=== PATIENT | female | born 1955 | race Caucasian/White ===

== ENCOUNTER 2018-07-23 14:38 | Inpatient (IN) | payer BC, SELFPAY ==
[2018-07-23 15:01] LABS: #Basophils 0.1 thou/uL (0.0-0.2); #Lymphocytes 2.2 thou/uL (1.20-3.40); #Neutrophils 6.8 thou/uL (1.40-6.50); %Basophils 0.9 % (0.0-1.0); %Eosinophils 9.3 % (0.0-10.0); %Lymphocytes 19.6 % (21.0-51.0); %Monocytes 8.8 % (0.0-10.0); %Neutrophils 61.5 % (42.0-75.0); Hemoglobin 13.8 g/dL (12.0-16.0); Mean Corpuscular HGB CONC 33.1 g/dL (32.0-36.0); Mean Corpuscular Hemoglobin 31.4 pg (27.0-31.0); Mean Corpuscular Volume 94.7 fL (78.0-98.0); Mean Platelet Volume 9.5 fL (7.4-10.4); Platelet Count 197 thou/uL (130-400); RBC Distribution Width 12.6 % (11.5-14.5); Red Blood Cell (RBC) Count 4.39 mill/uL (4.20-5.40); White Blood Cell (WBC) Count 11.1 thou/uL (4.8-10.8)
--- NOTE | 2018-07-23 15:16 | RAD ---
CHEST ONE VIEW: INDICATIONS: Dyspnea. COMPARISON: 09/22/2009 FINDINGS: The lungs are clear. The cardiomediastinal silhouette is within normal limits. No acute osseous abn ormality is evident. IMPRESSION: No acute cardiopulmonary abnormality. POS: IRENAH
[2018-07-23] MEDS ORDERED: methylPREDNISolone Sod Succ/PF 125 MG/2 ML VIAL ONE (15:22)
[2018-07-23 15:40] LABS: ALT (SGPT) 34 U/L (8-55); AST (SGOT) 19 U/L (5-34); Albumin 4.1 g/dL (3.4-4.8); Alkaline Phosphatase 81 U/L (40-150); Anion Gap 12 mmol/L (10-20); BUN (Urea Nitrogen) 25 mg/dL (9.8-20.1); Bilirubin, Total 0.3 mg/dL (0.2-1.2); Calc. Creatinine Clearance 0 mL/min (70-130); Calcium 9.9 mg/dL (7.8-10.44); Carbon Dioxide 23 mmol/L (23-31); Chloride 108 mmol/L (98-107); Estimated GFR-MDRD 41; Globulin 3.2 g/dL (2.4-3.5); Glucose 113 mg/dL (80-115); Potassium 4.5 mmol/L (3.5-5.1); Protein, Total 7.3 g/dL (6.0-8.3); Sodium 138 mmol/L (136-145)
[2018-07-23 15:43] LABS: CKMB 4.5 ng/mL (0-6.6); Troponin I Less than 0.010 ng/mL (< 0.028)
[2018-07-23] MEDS ORDERED: Albuterol Sulfate 2.5 mg/0.5 ml Neb ONE ×3 (15:59→18:51)
[2018-07-23] MEDS ORDERED: hydrALAZINE 20 MG/ML VIAL ONE (18:09)
[2018-07-23] MEDS ORDERED: Bisacodyl 10 MG SUPP PR PRN (21:27)
[2018-07-23] MEDS ORDERED: Acetaminophen 325 MG TAB PO PRN (21:27)
[2018-07-23] MEDS ORDERED: Senokot S 8.6-50 MG TAB PO PRN (21:27)
[2018-07-23] MEDS ORDERED: Ondansetron PF 4 MG/2 ML Vial IVP PRN (21:27)
[2018-07-23] MEDS ORDERED: Ondansetron ODT 4 MG TAB PO PRN (21:27)
[2018-07-23] MEDS ORDERED: methylPREDNISolone Sod Succ/PF 125 MG/2 ML VIAL IVP SCH (22:00)
[2018-07-24] MEDS: Montelukast Sodium 10 mg Tablet PO SCH ×2 (02:47→21:33)
[2018-07-24 03:59] VITALS: BMI 41.8
[2018-07-24 06:34] LABS: Anion Gap 15 mmol/L (10-20); BUN (Urea Nitrogen) 31 mg/dL (9.8-20.1); Calc. Creatinine Clearance 57 mL/min (70-130); Calcium 9.8 mg/dL (7.8-10.44); Carbon Dioxide 19 mmol/L (23-31); Chloride 105 mmol/L (98-107); Estimated GFR-MDRD 32; Glucose 221 mg/dL (80-115); Magnesium 2.1 mg/dL (1.6-2.6); Potassium 4.6 mmol/L (3.5-5.1); Sodium 134 mmol/L (136-145)
[2018-07-24] MEDS: Mometasone/Formoterol 120 PUFF INHALER INH SCH ×2 (06:57→18:56)
--- NOTE | 2018-07-24 07:51 | HP ---
PRIMARY CARE PHYSICIAN: Dr. Venessa Summers. CHIEF COMPLAINT: Shortness of breath and wheezing of 2 days' duration. HISTORY OF PRESENT ILLNESS: The patient is a 63-year-old female with COPD, presented to the emergency room with above complaints. Over the last 2 to 3 days, the patient developed gradual worsening shortness of breath along with chest tightness and wheezing. She also had cough that was productive of scanty amount of phlegm. She denies any fever or chills. She was unable to do routine activities because of exertional shortness of breath. She tried using albuterol nebulizer treatment without much relief. She then presented to the emergency room. In the emergency room, her initial vital signs showed temperature of 98.4, respirations of 22, pulse rate of 110 with a blood pressure of 217/94 with O2 saturation of 93% on room air. She received nebulizer treatments in the emergency room along with Solu-Medrol and 10 mg IV hydralazine. Chest x-ray was negative for infiltrate. PAST MEDICAL HISTORY: 1. COPD. 2. Hyperlipidemia. 3. Hypertension. PAST SURGICAL HISTORY: 1. Cholecystectomy. 2. Hysterectomy. 3. Right foot surgery. ALLERGIES: THE PATIENT IS ALLERGIC TO PENICILLIN. CURRENT HOME MEDICATIONS: 1. Amlodipine 5 mg daily. 2. Singulair 10 mg daily. 3. Albuterol nebulizer treatment as needed. 4. Symbicort daily. SOCIAL HISTORY: The patient currently lives at home. She quit smoking last month. She denies alcohol or drug use. FAMILY HISTORY: Negative for premature coronary artery disease. REVIEW OF SYSTEMS: The patient denies any nausea, vomiting, diarrhea, or focal neurologic deficit. All other review of systems was reviewed and were found negative. PHYSICAL EXAMINATION: VITAL SIGNS: As discussed above. GENERAL: A 63-year-old female, in mild respiratory distress, able to complete short phrases. HEENT: Head, atraumatic and normocephalic. Sclerae anicteric. Moist mucous membranes. No oral lesion. NECK: Supple. No JVD. No carotid bruit. LUNGS: Showed diffuse expiratory wheezing with accessory muscle use. There were scattered rhonchi as well as some bibasilar rales. HEART: S1 and S2 present. Tachycardic. No rubs or gallops. ABDOMEN: Soft and nontender. Bowel sounds present. EXTREMITIES: No edema or calf tenderness. NEUROLOGIC: Grossly nonfocal. Moves all 4 extremities. PSYCHIATRIC: Alert, awake, and oriented x3. SKIN: Warm and dry. LYMPH NODES: No palpable lymph nodes in the neck. PERIPHERAL VASCULAR: Radial pulses palpable bilaterally. MUSCULOSKELETAL: No joint swelling or tenderness. LABORATORY DATA: Lab findings, troponin negative. BNP 43. Creatinine 1.3 with BUN 25, sodium 138, and potassium 4.5. WBC 11.1 with hemoglobin 13.8, and platelet count 197. Influenza testing negative. Chest x-ray by my review was negative for infiltrate. EKG by my review showed sinus tachycardia without significant ST-T wave changes. IMPRESSION: 1. Chronic obstructive pulmonary disease exacerbation. 2. Hypertension. 3. Hyperlipidemia. 4. Chronic kidney disease stage 3 versus acute kidney injury. 5. Former smoker. PLAN: The patient will be monitored on the medical floor. We will continue Solu-Medrol with nebulizer treatment every 4 hourly. We will also add Levaquin. We will repeat labs in a.m. Plan of care was discussed with patient in detail. She stated understanding. Job ID: [id number]
[2018-07-24] MEDS: Enoxaparin Sodium 40 MG/0.4 ML SYRINGE SC SCH (08:59)
[2018-07-24] MEDS: Amlodipine 5 MG TAB PO SCH (09:00)
[2018-07-24] MEDS: Famotidine 20 MG TAB PO SCH ×2 (09:01→21:33)
[2018-07-24] MEDS: Sodium Chloride 0.9% 1,000 ML IV SCH (09:07)
--- NOTE | 2018-07-24 10:42 | PDOC.PN ---
- Subjective Encounter Start Date: 07/24/18 Encounter Start Time: 10:40 Subjective: sob improved - Objective Resuscitation Status - Order Detail: 07/23/18 21:27 Resuscitation Status Routine Resuscitation Status: FULL: Full Resuscitation MAR Reviewed: Yes Vital Signs & Weight: Vital Signs (12 hours) Temp Pulse Resp BP Pulse Ox 07/24/18 09:00 107 H 07/24/18 08:00 98.0 F 107 H 24 H 133/60 95 07/24/18 07:45 95 07/24/18 06:56 112 H 22 H 94 L 07/24/18 04:30 98.2 F 102 H 28 H 130/68 93 L 07/24/18 02:36 116 H 22 H 95 07/24/18 02:00 98.2 F 114 H 28 H 178/79 H 95 07/23/18 23:17 94 L 07/23/18 23:16 113 H 18 94 L Weight Weight 221 lb 3.2 oz I&O: 07/23/18 07/24/18 07/25/18 06:59 06:59 06:59 Intake Total 960 Output Total 600 Balance 360 Result Diagrams: 07/23/18 14:53 07/24/18 06:09 Phys Exam - Physical Examination Neck: no JVD diffuse exp wheezes Cardiovascular: RRR, no significant murmur Gastrointestinal: soft, positive bowel sounds Musculoskeletal: edema present Dx/Plan (1) COPD exacerbation Code(s): J44.1 - CHRONIC OBSTRUCTIVE PULMONARY DISEASE W (ACUTE) EXACERBATION Status: Acute (2) HTN (hypertension) Code(s): I10 - ESSENTIAL (PRIMARY) HYPERTENSION Status: Acute Qualifiers: Hypertension type: essential hypertension Qualified Code(s): I10 - Essential (primary) hypertension (3) Dyslipidemia Code(s): E78.5 - HYPERLIPIDEMIA, UNSPECIFIED Status: Chronic (4) Acute renal failure Status: Acute Qualifiers: Acute renal failure type: unspecified Qualified Code(s): N17.9 - Acute kidney failure, unspecified - Plan cont nebs, steroids-iv, antibx -: rpt BMP in am * .
[2018-07-25] MEDS: Sodium Chloride 0.9% 1,000 ML IV SCH (00:03)
[2018-07-25] MEDS: Mometasone/Formoterol 120 PUFF INHALER INH SCH ×2 (06:14→18:09)
[2018-07-25 07:29] LABS: Anion Gap 13 mmol/L (10-20); BUN (Urea Nitrogen) 30 mg/dL (9.8-20.1); Calc. Creatinine Clearance 60 mL/min (70-130); Calcium 9.4 mg/dL (7.8-10.44); Carbon Dioxide 20 mmol/L (23-31); Chloride 109 mmol/L (98-107); Estimated GFR-MDRD 34; Glucose 249 mg/dL (80-115); Potassium 4.8 mmol/L (3.5-5.1); Sodium 137 mmol/L (136-145)
[2018-07-25] MEDS: Famotidine 20 MG TAB PO SCH ×2 (09:40→22:28)
[2018-07-25] MEDS: Enoxaparin Sodium 40 MG/0.4 ML SYRINGE SC SCH (09:40)
[2018-07-25] MEDS: Amlodipine 5 MG TAB PO SCH (09:41)
--- NOTE | 2018-07-25 11:26 | PDOC.PN ---
- Subjective Encounter Start Date: 07/25/18 Encounter Start Time: 11:25 Subjective: much less sob, some BEST - Objective Resuscitation Status - Order Detail: 07/23/18 21:27 Resuscitation Status Routine Resuscitation Status: FULL: Full Resuscitation MAR Reviewed: Yes Vital Signs & Weight: Vital Signs (12 hours) Temp Pulse Resp BP Pulse Ox 07/25/18 09:41 95 07/25/18 09:24 95 18 93 L 07/25/18 08:00 97.8 F 99 24 H 168/80 H 94 L 07/25/18 06:14 99 20 93 L 07/25/18 06:12 99 20 93 L 07/25/18 04:40 20 07/25/18 02:46 94 20 92 L 07/25/18 00:05 20 Weight Weight 221 lb 3.2 oz I&O: 07/24/18 07/25/18 07/26/18 06:59 06:59 06:59 Intake Total 960 Output Total 600 Balance 360 Result Diagrams: 07/23/18 14:53 07/25/18 06:53 Phys Exam - Physical Examination Neck: no JVD prolonged exr phase Cardiovascular: RRR, no significant murmur Gastrointestinal: soft, positive bowel sounds Musculoskeletal: no edema Dx/Plan (1) COPD exacerbation Code(s): J44.1 - CHRONIC OBSTRUCTIVE PULMONARY DISEASE W (ACUTE) EXACERBATION Status: Acute (2) HTN (hypertension) Code(s): I10 - ESSENTIAL (PRIMARY) HYPERTENSION Status: Acute Qualifiers: Hypertension type: essential hypertension Qualified Code(s): I10 - Essential (primary) hypertension (3) Dyslipidemia Code(s): E78.5 - HYPERLIPIDEMIA, UNSPECIFIED Status: Chronic (4) Acute renal failure Status: Acute Qualifiers: Acute renal failure type: unspecified Qualified Code(s): N17.9 - Acute kidney failure, unspecified - Plan steady improvement -: reduce nebs to q6h -: change steroids to prednisone 40 mg po daily * .
[2018-07-25] MEDS: Montelukast Sodium 10 mg Tablet PO SCH (22:27)
[2018-07-26 06:17] LABS: Anion Gap 12 mmol/L (10-20); BUN (Urea Nitrogen) 31 mg/dL (9.8-20.1); Calc. Creatinine Clearance 62 mL/min (70-130); Calcium 9.7 mg/dL (7.8-10.44); Carbon Dioxide 23 mmol/L (23-31); Chloride 108 mmol/L (98-107); Estimated GFR-MDRD 36; Glucose 127 mg/dL (80-115); Potassium 4.5 mmol/L (3.5-5.1); Sodium 138 mmol/L (136-145)
[2018-07-26] MEDS: Mometasone/Formoterol 120 PUFF INHALER INH SCH (07:53)
[2018-07-26 08:00] VITALS: BP 178/77; TEMP 97.6
[2018-07-26] MEDS ORDERED: predniSONE 20 MG TAB PO SCH (08:00)
[2018-07-26] MEDS: Amlodipine 5 MG TAB PO SCH (08:49)
[2018-07-26] MEDS: Famotidine 20 MG TAB PO SCH (08:49)
[2018-07-26] MEDS: Enoxaparin Sodium 40 MG/0.4 ML SYRINGE SC SCH (08:51)
--- NOTE | 2018-07-26 11:29 | DIS ---
DATE OF ADMISSION: 07/23/2018 DATE OF DISCHARGE: 07/26/2018 TRANSFER OF CARE PRIMARY CARE PROVIDER: Venessa Summers MD DISPOSITION: Discharged home. FINAL DIAGNOSES: Acute exacerbation of chronic obstructive pulmonary disease, chronic kidney disease stage 3, hypertension, and tobacco abuse. DISCHARGE MEDICATIONS: New: 1. Dulera 200/5 two puffs b.i.d. 2. Levaquin 500 mg p.o. daily x5 days. 3. Medrol Dosepak. Home medicines: 1. DuoNeb 3 mL q.i.d. 2. Amlodipine 5 mg a day. 3. Singulair 10 mg a day. ALLERGIES: TO PENICILLINS. DIET: Heart healthy. PENDING AT THE TIME OF DISCHARGE: Nothing. CODE STATUS: Full. HOSPITAL COURSE: The patient with a history of COPD, presented with acute exacerbation to [facility] Emergency Room. The patient was started on IV steroids, antibiotics, and nebulizers. She improved steadily during her hospital stay. Dulera 200/5 was started two puffs b.i.d. The patient has improved steadily during her hospital stay. Currently, her chest is clear. O2 sats are normal on room air. She is being discharged. CONSULTATIONS: None. PROCEDURES: None. PERTINENT REPORTS: Chest x-ray clear without evidence of pneumonia, etc. LABORATORY DATA: Her comprehensive metabolic profile reveals a chronic kidney disease stage 3 with creatinines in the 1.3 to 1.6 range. Her white cell count was minimally elevated at 11.1, hemoglobin 13.8, and platelet count 197,000. DISCHARGE INSTRUCTIONS: She had been advised to see her primary care provider, Dr. Venessa Summers, in 1 week for followup. Job ID: [id number]
--- NOTE | 2018-07-29 12:41 | EKG ---
Test Reason : Blood Pressure : / mmHG Vent. Rate : 101 BPM Atrial Rate : 101 BPM P-R Int : 192 ms QRS Dur : 074 ms QT Int : 322 ms P-R-T Axes : 051 002 040 degrees QTc Int : 417 ms Sinus tachycardia Otherwise normal ECG Confirmed by MARIA ELENA COE ([id number]), state editor GALINDO NICOLAS ([id number]) on 07/29/2018 12:40:58 PM Referred By: Confirmed By:MARIA ELENA COE
--- NOTE | 2018-07-31 10:56 | PQF ---
DANNY MCCORMACK, REPLACED BY [facility] [id number] CLINICAL DOCUMENTATION CLARIFICATION FORM: POST DISCHARGE DATE: 07-31-2018 ATTN: Dr. Lovett Please exercise your independent, professional judgment in responding to the clarification form. Clinical indicators are provided on the bottom of this form for your review Please check appropriate box(s) to clarify if the following diagnosis has been ruled in or ruled out: Acute Renal Failure [ ] Ruled in diagnosis [ ] Continue to treat [ ] Resolved [ x ] Ruled out diagnosis [ ] Cannot rule out diagnosis [ ] Other diagnosis (please specify) [ ] Unable to determine In addition, please specify: Present on Admission (POA): [ ] Yes [ ] No [ ] Unable to determine For continuity of documentation, please document condition throughout progress notes and discharge summary. Thank You. CLINICAL INDICATORS - SIGNS / SYMPTOMS / LABS Per H&P: Chronic kidney disease stage 3 versus acute kidney injury. Creatinine 1.3 with BUN 25. Per Hospitalist progress notes: Acute renal failure/Acute kidney failure. . Per Discharge Summary: Chronic kidney disease stage 3. RISK FACTORS Per labs: Elevated BUN 25 on 07/23. 31 on 07/24 and 07/26. 30 on 07/25. Elevated Creatinine 1.31 on 07/23. 1.61 on 07/24. 1.54 on 07/25. 1.48 on 07/26. TREATMENTS Per medications: IV fluid. (This form is maintained as a part of the permanent medical record) 2014 [employer] All Rights Reserved [email or web address] [phone] [email or web address]
== END 2018-07-26 10:45 | disposition home or self-care (01) | DRG 192 ==
LOC: ERS 14:38 → ERHOLD 17:59 → 3SE 07-24 02:04
PROVIDERS: ADMIT Internal Medicine; ATTEND Internal Medicine
DX: J44.1 Chronic obstructive pulmonary disease with (acute) exacerbation (principal); I12.9 Hypertensive chronic kidney disease with stage 1 through stage 4 chronic kidney disease, or unspecified chronic kidney disease; N18.3 Chronic kidney disease, stage 3 (moderate); E78.5 Hyperlipidemia, unspecified; Z87.891 Personal history of nicotine dependence; Z88.0 Allergy status to penicillin; Z79.899 Other long term (current) drug therapy
CPT/HCPCS: 36415; 71045; 80048; 80053; 82553; 83735; 83880; 84484; 85025; 87804; 93005; 94640; 96374; 96375; 96376; J0360; J1650; J2920; J2930; J7506; J7611; J7620

== ENCOUNTER 2023-08-28 15:00 | Inpatient (IN) | payer MEDICARE, SELFPAY ==
[2023-08-28] MEDS ORDERED: Ketamine In 0.9 % NaCl 50 MG/5 ML SYRINGE ONE (15:17)
[2023-08-28] MEDS ORDERED: Rocuronium Bromide 10 MG/ML (10ML VIAL) ONE (15:17)
[2023-08-28] MEDS ORDERED: fentaNYL 50 mcg/mL 1 mL Vial ONE (15:40)
[2023-08-28] MEDS ORDERED: Fentanyl CADD 100 ML IV SCH (15:45)
[2023-08-28 15:50] LABS: Actual Bicarbonate (HCO3a) 21.6 mEq/L (22-28); Analyzer IN Cardio ER; Base Excess (BEa) -4.6 mEq/L (-2.0 to +3.0); CO2 Tension 43.9 mmHg (35.0-45.0); Calcium, Ionized (arterial) 1.24 mmol/L (1.12-1.30); Carboxyhemoglobin (COHb) 3.2 gm% (0.0-3.0); Hematocrit-ABG 43 % (36.0-47.0); Hemoglobin (Hb) 14.6 g/dL (12.0-16.0); O2 Tension (PaO2), arterial 371.3 mmHg (> 80.0); Potassium - ABG Lab 4.48 mmol/L (3.70-5.30); pH, Arterial 7.309 (7.35-7.45)
[2023-08-28 15:51] LABS: ALV-art Gradient -72.175 mmHg (0-20); Puncture Site RRA
[2023-08-28] MEDS ORDERED: diphenhydrAMINE 50 MG/ML VIAL ONE (16:38)
[2023-08-28] MEDS ORDERED: methylPREDNISolone Sod Succ/PF 125 MG/2 ML VIAL ONE (16:38)
[2023-08-28] MEDS ORDERED: Famotidine/PF 20 mg/2ml Vial ONE (16:39)
[2023-08-28] MEDS ORDERED: Ondansetron ODT 4 MG TAB PO PRN (16:41)
[2023-08-28] MEDS ORDERED: Ondansetron PF 4 MG/2 ML Vial IVP PRN (16:41)
[2023-08-28] MEDS ORDERED: Acetaminophen 650 MG Suppository PR PRN (16:41)
[2023-08-28] MEDS ORDERED: Propofol 1,000 MG/100 ML VIAL IV ONE (16:42)
[2023-08-28] MEDS ORDERED: Ipratropium/Albuterol 3 ML NEB NEB PRN (16:57)
[2023-08-28 17:35] LABS: #Basophils 0.1 thou/uL (0.0-0.2); #Eosinphils 0.4 thou/uL (0.0-0.7); #Monocytes 0.9 thou/uL (0.11-0.59); #Neutrophils 10.4 thou/uL (1.40-6.50); %Basophils 0.4 % (0.0-1.0); %Eosinophils 2.9 % (0.0-10.0); %Lymphocytes 12.9 % (21.0-51.0); %Monocytes 6.9 % (0.0-10.0); %Neutrophils 76.5 % (42.0-75.0); Hematocrit 43.4 % (36.0-47.0); Hemoglobin 13.8 g/dL (12.0-16.0); Mean Corpuscular HGB CONC 31.8 g/dL (32.0-36.0); Mean Corpuscular Volume 100.7 fl (78.0-98.0); Mean Platelet Volume 11.9 fL (7.4-10.4); Platelet Count 207 10x3/uL (130-400); RBC Distribution Width 13.8 % (11.5-14.5); Red Blood Cell (RBC) Count 4.31 mill/uL (4.20-5.40); White Blood Cell (WBC) Count 13.6 10x3/uL (4.8-10.8)
[2023-08-28] MEDS ORDERED: Albuterol 2.5 MG (0.5 mL) NEB ONE (17:35)
[2023-08-28 17:59] LABS: ALT (SGPT) 21 U/L (8-55); AST (SGOT) 16 U/L (5-34); Alkaline Phosphatase 82 U/L (40-110); Anion Gap 15 mmol/L (10-20); BUN (Urea Nitrogen) 31 mg/dL (9.8-20.1); Bilirubin, Total 0.4 mg/dL (0.2-1.2); Calc. Creatinine Clearance 0 mL/min (70-130); Calcium 9.1 mg/dL (7.8-10.44); Carbon Dioxide 20 mmol/L (23-31); Chloride 108 mmol/L (98-107); Estimated GFR 30; Globulin 3.4 g/dL (2.4-3.5); Glucose 126 mg/dL (80-115); Potassium 4.6 mmol/L (3.5-5.1); Protein, Total 7.4 g/dL (5.8-8.1); Sodium 138 mmol/L (136-145)
[2023-08-28] MEDS ORDERED: Propofol BOLUS 1,000 MG/100 ML VIAL IV PRN (18:00)
[2023-08-28] MEDS ORDERED: Lorazepam 2 MG/ML VIAL SLOW IVP PRN (18:00)
[2023-08-28] MEDS ORDERED: Morphine 2 MG/ML VIAL SLOW IVP PRN (18:00)
[2023-08-28] MEDS ORDERED: DISCONTINUE PREVIOUS NARCOTIC PAIN MEDICATIONS AND BENZODIAZEPINES FS SCH (18:00)
[2023-08-28] MEDS ORDERED: Ventilator Sedation Protocol 1 EACH FS SCH (18:00)
[2023-08-28] MEDS ORDERED: Fentanyl BOLUS 250 ML IVPB PRN (18:00)
[2023-08-28] MEDS: Ipratropium/Albuterol 3 ML NEB NEB SCH (19:28)
[2023-08-28] MEDS ORDERED: Famotidine/PF 20 mg/2ml Vial SLOW IVP SCH (21:00)
[2023-08-28] MEDS: Propofol 1,000 MG/100 ML VIAL IV PRN (21:50)
[2023-08-29] MEDS: Ipratropium/Albuterol 3 ML NEB NEB SCH ×7 (00:18→22:45)
[2023-08-29] MEDS: Propofol 1,000 MG/100 ML VIAL IV PRN ×6 (03:14→22:46)
[2023-08-29] MEDS: Fentanyl CADD 100 ML IV SCH ×2 (05:25→19:29)
[2023-08-29 07:30] LABS: Actual Bicarbonate (HCO3a) 21.3 mEq/L (22-28); Base Excess (BEa) -6.2 mEq/L (-2.0 to +3.0); CO2 Tension 49.5 mmHg (35.0-45.0); Calcium, Ionized (arterial) 1.28 mmol/L (1.12-1.30); Carboxyhemoglobin (COHb) 1.8 gm% (0.0-3.0); Hematocrit-ABG 45 % (36.0-47.0); Hemoglobin (Hb) 15.3 g/dL (12.0-16.0); O2 Tension (PaO2), arterial 71.1 mmHg (> 80.0); Potassium - ABG Lab 5.38 mmol/L (3.70-5.30); pH, Arterial 7.252 (7.35-7.45)
[2023-08-29 07:39] LABS: #Monocytes 0.5 thou/uL (0.11-0.59); #Neutrophils 16.2 thou/uL (1.40-6.50); %Basophils 0.2 % (0.0-1.0); %Lymphocytes 4.4 % (21.0-51.0); %Monocytes 2.9 % (0.0-10.0); %Neutrophils 91.7 % (42.0-75.0); Hematocrit 41.6 % (36.0-47.0); Mean Corpuscular HGB CONC 31.3 g/dL (32.0-36.0); Mean Corpuscular Hemoglobin 31.4 pg (27.0-31.0); Mean Corpuscular Volume 100.5 fl (78.0-98.0); Platelet Count 209 10x3/uL (130-400); RBC Distribution Width 13.9 % (11.5-14.5); Red Blood Cell (RBC) Count 4.14 mill/uL (4.20-5.40); White Blood Cell (WBC) Count 17.6 10x3/uL (4.8-10.8)
[2023-08-29 07:42] LABS: Puncture Site RRA
[2023-08-29 07:43] LABS: ALV-art Gradient 152.225 mmHg (0-20)
[2023-08-29 07:53] VITALS: BMI 40.8
[2023-08-29] MEDS ORDERED: Enoxaparin 40 MG (0.4 mL) SYRINGE SC SCH (09:00)
[2023-08-29] MEDS ORDERED: methylPREDNISolone Sod Succ 40 MG VIAL IVP SCH (09:00)
[2023-08-29 09:14] LABS: Anion Gap 17 mmol/L (10-20); BUN (Urea Nitrogen) 39 mg/dL (9.8-20.1); Calc. Creatinine Clearance 40 mL/min (70-130); Calcium 8.9 mg/dL (7.8-10.44); Carbon Dioxide 17 mmol/L (23-31); Chloride 108 mmol/L (98-107); Estimated GFR 23; Glucose 128 mg/dL (80-115); Sodium 136 mmol/L (136-145)
[2023-08-29] MEDS ORDERED: Sodium Chloride 0.9% 500 ML IV SCH (10:30)
[2023-08-29] MEDS ORDERED: Sodium Chloride 0.9% 1,000 ML IV SCH (10:30)
[2023-08-29] MEDS ORDERED: LOKELMA 10 GM PACKET PO SCH (10:45)
[2023-08-29] MEDS ORDERED: Sodium Bicarbonate 150 MEQ in Dextrose 5% in Water 1,000 ML IV SCH (10:45)
[2023-08-29] MEDS ORDERED: Sodium Polystyrene Sulfonate 15 GM (60 mL) BOT PER TUBE SCH (11:30)
[2023-08-29 19:49] LABS: Anion Gap 13 mmol/L (10-20); BUN (Urea Nitrogen) 45 mg/dL (9.8-20.1); Calc. Creatinine Clearance 36 mL/min (70-130); Calcium 8.5 mg/dL (7.8-10.44); Carbon Dioxide 22 mmol/L (23-31); Chloride 104 mmol/L (98-107); Estimated GFR 21; Glucose 162 mg/dL (80-115); Potassium 5.1 mmol/L (3.5-5.1); Sodium 134 mmol/L (136-145)
[2023-08-29] MEDS ORDERED: Famotidine/PF 20 mg/2ml Vial SLOW IVP SCH (21:00)
[2023-08-30] MEDS: Sodium Chloride 0.9% 1,000 ML IV SCH ×5 (00:22→22:17)
[2023-08-30] MEDS: Propofol 1,000 MG/100 ML VIAL IV PRN ×6 (02:49→21:28)
[2023-08-30] MEDS: Ipratropium/Albuterol 3 ML NEB NEB SCH ×7 (02:57→21:57)
[2023-08-30 07:03] LABS: Actual Bicarbonate (HCO3a) 22.7 mEq/L (22-28); Base Excess (BEa) -1.4 mEq/L (-2.0 to +3.0); CO2 Tension 36.9 mmHg (35.0-45.0); Calcium, Ionized (arterial) 1.15 mmol/L (1.12-1.30); Carboxyhemoglobin (COHb) 0.3 gm% (0.0-3.0); Hematocrit-ABG 58 % (36.0-47.0); Hemoglobin (Hb) 19.6 g/dL (12.0-16.0); O2 Tension (PaO2), arterial 59.1 mmHg (> 80.0); Potassium - ABG Lab 3.69 mmol/L (3.70-5.30); Puncture Site RRA; pH, Arterial 7.406 (7.35-7.45)
[2023-08-30 07:04] LABS: ALV-art Gradient 179.975 mmHg (0-20)
[2023-08-30] MEDS: Enoxaparin 30 MG (0.3 mL) SYRINGE SC SCH (09:18)
[2023-08-30 09:27] LABS: Anion Gap 14 mmol/L (10-20); BUN (Urea Nitrogen) 53 mg/dL (9.8-20.1); Calc. Creatinine Clearance 39 mL/min (70-130); Calcium 8.6 mg/dL (7.8-10.44); Carbon Dioxide 23 mmol/L (23-31); Chloride 105 mmol/L (98-107); Estimated GFR 23; Glucose 128 mg/dL (80-115); Potassium 4.2 mmol/L (3.5-5.1); Sodium 138 mmol/L (136-145)
[2023-08-30] MEDS: Fentanyl CADD 100 ML IV SCH ×2 (09:29→23:36)
[2023-08-30] MEDS: methylPREDNISolone Sod Succ 40 MG VIAL IVP SCH ×3 (11:06→23:36)
[2023-08-30] MEDS: Acetaminophen 325 MG TAB PO PRN (16:14)
[2023-08-30] MEDS ORDERED: Famotidine/PF 20 mg/2ml Vial SLOW IVP SCH (21:00)
[2023-08-31] MEDS: Propofol 1,000 MG/100 ML VIAL IV PRN ×2 (02:06→06:28)
[2023-08-31] MEDS: Ipratropium/Albuterol 3 ML NEB NEB SCH ×6 (02:30→22:36)
[2023-08-31 06:17] LABS: #Monocytes 0.7 thou/uL (0.11-0.59); #Neutrophils 12.7 thou/uL (1.40-6.50); %Basophils 0.1 % (0.0-1.0); %Monocytes 5.3 % (0.0-10.0); %Neutrophils 90.1 % (42.0-75.0); Hemoglobin 12.3 g/dL (12.0-16.0); Mean Corpuscular HGB CONC 30.8 g/dL (32.0-36.0); Mean Corpuscular Hemoglobin 31.2 pg (27.0-31.0); Mean Corpuscular Volume 101.5 fl (78.0-98.0); Mean Platelet Volume 12.5 fL (7.4-10.4); Platelet Count 173 10x3/uL (130-400); RBC Distribution Width 14.4 % (11.5-14.5); Red Blood Cell (RBC) Count 3.94 mill/uL (4.20-5.40); White Blood Cell (WBC) Count 14.1 10x3/uL (4.8-10.8)
[2023-08-31] MEDS: Levothyroxine Sodium 125 MCG TAB PO SCH (06:27)
[2023-08-31] MEDS: methylPREDNISolone Sod Succ 40 MG VIAL IVP SCH ×3 (06:37→17:59)
[2023-08-31 07:09] LABS: Anion Gap 15 mmol/L (10-20); BUN (Urea Nitrogen) 51 mg/dL (9.8-20.1); Calc. Creatinine Clearance 50 mL/min (70-130); Calcium 8.8 mg/dL (7.8-10.44); Carbon Dioxide 22 mmol/L (23-31); Chloride 107 mmol/L (98-107); Estimated GFR 30; Glucose 157 mg/dL (80-115); Magnesium 2.7 mg/dL (1.6-2.6); Potassium 5.1 mmol/L (3.5-5.1); Sodium 139 mmol/L (136-145)
[2023-08-31 07:30] LABS: Actual Bicarbonate (HCO3a) 23.7 mEq/L (22-28); Base Excess (BEa) -3.3 mEq/L (-2.0 to +3.0); CO2 Tension 50.7 mmHg (35.0-45.0); Calcium, Ionized (arterial) 1.23 mmol/L (1.12-1.30); Carboxyhemoglobin (COHb) 0.8 gm% (0.0-3.0); Hematocrit-ABG 38 % (36.0-47.0); Hemoglobin (Hb) 12.8 g/dL (12.0-16.0); O2 Tension (PaO2), arterial 63.3 mmHg (> 80.0); Potassium - ABG Lab 4.94 mmol/L (3.70-5.30); pH, Arterial 7.288 (7.35-7.45)
[2023-08-31 07:31] LABS: Puncture Site RRA
[2023-08-31 07:32] LABS: ALV-art Gradient 194.175 mmHg (0-20)
[2023-08-31] MEDS: Enoxaparin 30 MG (0.3 mL) SYRINGE SC SCH (08:04)
[2023-08-31] MEDS: Pantoprazole 40 MG VIAL IVP SCH (08:38)
[2023-08-31] MEDS: Sodium Chloride 0.9% 1,000 ML IV SCH (11:40)
[2023-08-31] MEDS ORDERED: DC Sedation Protocol FS ONE (14:33)
[2023-08-31] MEDS: cloNIDine 0.1 MG TAB PO SCH (20:21)
[2023-09-01] MEDS: Sodium Chloride 0.9% 1,000 ML IV SCH (00:25)
[2023-09-01] MEDS: methylPREDNISolone Sod Succ 40 MG VIAL IVP SCH ×2 (00:27→05:23)
[2023-09-01] MEDS: Ipratropium/Albuterol 3 ML NEB NEB SCH ×5 (02:30→21:10)
[2023-09-01 06:35] LABS: #Monocytes 0.7 thou/uL (0.11-0.59); #Neutrophils 9.8 thou/uL (1.40-6.50); %Basophils 0.2 % (0.0-1.0); %Lymphocytes 6.9 % (21.0-51.0); %Monocytes 6.3 % (0.0-10.0); %Neutrophils 85.7 % (42.0-75.0); Hematocrit 38.4 % (36.0-47.0); Hemoglobin 11.8 g/dL (12.0-16.0); Mean Corpuscular HGB CONC 30.7 g/dL (32.0-36.0); Mean Corpuscular Hemoglobin 31.1 pg (27.0-31.0); Mean Corpuscular Volume 101.1 fl (78.0-98.0); Mean Platelet Volume 12.7 fL (7.4-10.4); Platelet Count 171 10x3/uL (130-400); RBC Distribution Width 14.5 % (11.5-14.5); White Blood Cell (WBC) Count 11.5 10x3/uL (4.8-10.8)
[2023-09-01 07:49] LABS: Anion Gap 13 mmol/L (10-20); BUN (Urea Nitrogen) 47 mg/dL (9.8-20.1); Calc. Creatinine Clearance 66 mL/min (70-130); Calcium 8.8 mg/dL (7.8-10.44); Carbon Dioxide 21 mmol/L (23-31); Chloride 112 mmol/L (98-107); Estimated GFR 43; Glucose 110 mg/dL (80-115); Potassium 4.8 mmol/L (3.5-5.1); Sodium 141 mmol/L (136-145)
[2023-09-01] MEDS: Amlodipine 5 MG TAB PO SCH (08:42)
[2023-09-01] MEDS: Enoxaparin 30 MG (0.3 mL) SYRINGE SC SCH (08:42)
[2023-09-01] MEDS: cloNIDine 0.1 MG TAB PO SCH ×2 (08:43→20:57)
[2023-09-01] MEDS: Levothyroxine Sodium 125 MCG TAB PO SCH (08:43)
[2023-09-01] MEDS: Pantoprazole 40 MG VIAL IVP SCH (08:51)
[2023-09-01] MEDS ORDERED: FLU VACC QS2023(65UP)/MF59C/PF 60 MCG/0.5 ML SYRINGE IM ONE (09:00)
[2023-09-01] MEDS ORDERED: Docusate 100 MG CAP PO PRN (11:39)
[2023-09-01] MEDS ORDERED: Polyethylene Glycol 3350 17 GM Packet PO PRN (11:39)
[2023-09-02] MEDS: Ipratropium/Albuterol 3 ML NEB NEB SCH ×7 (02:02→23:23)
[2023-09-02 06:20] LABS: Anion Gap 12 mmol/L (10-20); BUN (Urea Nitrogen) 42 mg/dL (9.8-20.1); Calc. Creatinine Clearance 71 mL/min (70-130); Carbon Dioxide 22 mmol/L (23-31); Chloride 111 mmol/L (98-107); Estimated GFR 46; Glucose 77 mg/dL (80-115); Potassium 4.6 mmol/L (3.5-5.1); Sodium 140 mmol/L (136-145)
[2023-09-02] MEDS ORDERED: Enoxaparin 40 MG (0.4 mL) SYRINGE SC SCH (09:15)
[2023-09-02] MEDS: Pantoprazole 40 MG VIAL IVP SCH (09:49)
[2023-09-02] MEDS: Levothyroxine Sodium 125 MCG TAB PO SCH (09:50)
[2023-09-02] MEDS: Amlodipine 5 MG TAB PO SCH (09:51)
[2023-09-02] MEDS: cloNIDine 0.1 MG TAB PO SCH ×2 (09:51→20:24)
[2023-09-02] MEDS: Enoxaparin 30 MG (0.3 mL) SYRINGE SC SCH (09:51)
[2023-09-02] MEDS: Amlodipine 10 MG TAB PO SCH (09:52)
[2023-09-02] MEDS: Acetaminophen 325 MG TAB PO PRN (14:21)
[2023-09-03] MEDS: Ipratropium/Albuterol 3 ML NEB NEB SCH ×5 (03:21→22:15)
[2023-09-03] MEDS: Levothyroxine Sodium 125 MCG TAB PO SCH (05:49)
[2023-09-03] MEDS: cloNIDine 0.1 MG TAB PO SCH ×2 (10:42→21:32)
[2023-09-03] MEDS: Amlodipine 10 MG TAB PO SCH (10:43)
[2023-09-03] MEDS: Enoxaparin 40 MG (0.4 mL) SYRINGE SC SCH (10:44)
[2023-09-03] MEDS: Gabapentin 300 MG CAP PO SCH ×2 (18:17→21:33)
[2023-09-04] MEDS: Levothyroxine Sodium 125 MCG TAB PO SCH (06:02)
[2023-09-04] MEDS: Ipratropium/Albuterol 3 ML NEB NEB SCH ×3 (06:35→21:43)
[2023-09-04 06:45] LABS: #Eosinphils 0.4 thou/uL (0.0-0.7); #Neutrophils 8.9 thou/uL (1.40-6.50); %Basophils 0.3 % (0.0-1.0); %Eosinophils 3.6 % (0.0-10.0); %Lymphocytes 13.3 % (21.0-51.0); %Monocytes 8.5 % (0.0-10.0); %Neutrophils 73.4 % (42.0-75.0); Hematocrit 39.5 % (36.0-47.0); Hemoglobin 12.5 g/dL (12.0-16.0); Mean Corpuscular HGB CONC 31.6 g/dL (32.0-36.0); Mean Corpuscular Hemoglobin 31.6 pg (27.0-31.0); Mean Corpuscular Volume 99.7 fl (78.0-98.0); Mean Platelet Volume 11.9 fL (7.4-10.4); Platelet Count 160 10x3/uL (130-400); RBC Distribution Width 13.6 % (11.5-14.5); Red Blood Cell (RBC) Count 3.96 mill/uL (4.20-5.40); White Blood Cell (WBC) Count 12.2 10x3/uL (4.8-10.8)
[2023-09-04 07:09] LABS: Anion Gap 15 mmol/L (10-20); BUN (Urea Nitrogen) 31 mg/dL (9.8-20.1); Calc. Creatinine Clearance 66 mL/min (70-130); Calcium 8.9 mg/dL (7.8-10.44); Carbon Dioxide 19 mmol/L (23-31); Chloride 110 mmol/L (98-107); Estimated GFR 42; Glucose 83 mg/dL (80-115); Potassium 4.6 mmol/L (3.5-5.1); Sodium 139 mmol/L (136-145)
[2023-09-04] MEDS: Montelukast Sodium 10 mg Tablet PO SCH (08:37)
[2023-09-04] MEDS: Gabapentin 300 MG CAP PO SCH ×4 (08:37→21:32)
[2023-09-04] MEDS: Enoxaparin 40 MG (0.4 mL) SYRINGE SC SCH (08:38)
[2023-09-04] MEDS: cloNIDine 0.1 MG TAB PO SCH ×2 (09:15→21:32)
[2023-09-04] MEDS: Amlodipine 10 MG TAB PO SCH (09:16)
[2023-09-04] MEDS ORDERED: predniSONE 20 MG TAB PO SCH (10:30)
[2023-09-04] MEDS: Acetaminophen 325 MG TAB PO PRN (21:39)
[2023-09-05 05:59] LABS: #Eosinphils 0.1 thou/uL (0.0-0.7); #Monocytes 0.8 thou/uL (0.11-0.59); #Neutrophils 7.7 thou/uL (1.40-6.50); %Basophils 0.2 % (0.0-1.0); %Eosinophils 1.4 % (0.0-10.0); %Lymphocytes 15.1 % (21.0-51.0); %Monocytes 7.6 % (0.0-10.0); %Neutrophils 74.5 % (42.0-75.0); Hematocrit 36.1 % (36.0-47.0); Hemoglobin 11.3 g/dL (12.0-16.0); Mean Corpuscular HGB CONC 31.3 g/dL (32.0-36.0); Mean Corpuscular Hemoglobin 31.4 pg (27.0-31.0); Mean Corpuscular Volume 100.3 fl (78.0-98.0); Mean Platelet Volume 11.9 fL (7.4-10.4); Platelet Count 146 10x3/uL (130-400); RBC Distribution Width 13.4 % (11.5-14.5); White Blood Cell (WBC) Count 10.4 10x3/uL (4.8-10.8)
[2023-09-05] MEDS: Levothyroxine Sodium 125 MCG TAB PO SCH (06:09)
[2023-09-05 06:24] LABS: Anion Gap 12 mmol/L (10-20); BUN (Urea Nitrogen) 36 mg/dL (9.8-20.1); Calc. Creatinine Clearance 66 mL/min (70-130); Calcium 8.7 mg/dL (7.8-10.44); Carbon Dioxide 23 mmol/L (23-31); Chloride 108 mmol/L (98-107); Estimated GFR 43; Glucose 111 mg/dL (80-115); Potassium 4.9 mmol/L (3.5-5.1); Sodium 138 mmol/L (136-145)
[2023-09-05] MEDS: Ipratropium/Albuterol 3 ML NEB NEB SCH ×3 (07:25→23:36)
[2023-09-05] MEDS: Enoxaparin 40 MG (0.4 mL) SYRINGE SC SCH (08:34)
[2023-09-05] MEDS: Montelukast Sodium 10 mg Tablet PO SCH (08:34)
[2023-09-05] MEDS: predniSONE 20 MG TAB PO SCH (08:35)
[2023-09-05] MEDS: Amlodipine 10 MG TAB PO SCH (08:35)
[2023-09-05] MEDS: cloNIDine 0.1 MG TAB PO SCH ×2 (08:35→21:30)
[2023-09-05] MEDS: Gabapentin 300 MG CAP PO SCH ×3 (08:36→21:30)
[2023-09-06] MEDS: Levothyroxine Sodium 125 MCG TAB PO SCH (06:24)
[2023-09-06] MEDS: Enoxaparin 40 MG (0.4 mL) SYRINGE SC SCH (08:21)
[2023-09-06] MEDS: cloNIDine 0.1 MG TAB PO SCH ×3 (08:21→20:09)
[2023-09-06] MEDS: predniSONE 20 MG TAB PO SCH (08:25)
[2023-09-06] MEDS: Montelukast Sodium 10 mg Tablet PO SCH (08:25)
[2023-09-06] MEDS: Amlodipine 10 MG TAB PO SCH (08:25)
[2023-09-06] MEDS: Gabapentin 300 MG CAP PO SCH ×3 (08:26→19:59)
[2023-09-06] MEDS: Ipratropium/Albuterol 3 ML NEB NEB SCH ×3 (09:16→22:03)
[2023-09-06] MEDS ORDERED: HYDROcodone/Acetaminophen 5/325 mg Tablet PO PRN (16:16)
[2023-09-06] MEDS ORDERED: Polyethylene Glycol 3350 17 GM Packet PO SCH (17:45)
[2023-09-06] MEDS: valACYclovir 500 MG TAB PO SCH (19:57)
[2023-09-06] MEDS: Senokot S 8.6-50 MG TAB PO SCH (19:57)
[2023-09-07] MEDS: Levothyroxine Sodium 125 MCG TAB PO SCH (06:21)
[2023-09-07] MEDS ORDERED: predniSONE 20 MG TAB PO SCH (08:00)
[2023-09-07] MEDS: Ipratropium/Albuterol 3 ML NEB NEB SCH (08:10)
[2023-09-07] MEDS: cloNIDine 0.1 MG TAB PO SCH (08:40)
[2023-09-07] MEDS: Enoxaparin 40 MG (0.4 mL) SYRINGE SC SCH (08:40)
[2023-09-07] MEDS: Montelukast Sodium 10 mg Tablet PO SCH (08:42)
[2023-09-07] MEDS: Amlodipine 10 MG TAB PO SCH (08:42)
[2023-09-07] MEDS: valACYclovir 500 MG TAB PO SCH (08:42)
[2023-09-07 08:43] VITALS: BP 119/64
[2023-09-07] MEDS: Gabapentin 300 MG CAP PO SCH (08:43)
[2023-09-07] MEDS: Senokot S 8.6-50 MG TAB PO SCH (08:43)
[2023-09-07] MEDS ORDERED: Polyethylene Glycol 3350 17 GM Packet PO SCH (09:00)
[2023-09-07 09:44] VITALS: TEMP 97.9
== END 2023-09-07 15:02 | disposition home or self-care (01) | DRG 915 ==
LOC: ERS 15:00 → ERHOLD 16:43 → CCU 18:00 → MSONC 09-01 17:26
PROVIDERS: ADMIT Student in an Organized Health Care Education/Training Program; ATTEND Emergency Medicine
PROC: 4A133R1 Monitoring of Arterial Saturation, Peripheral, Percutaneous Approach (ICD-10-PCS; principal; 2023-08-28)
PROC: 5A1945Z Respiratory Ventilation, 24-96 Consecutive Hours (ICD-10-PCS; 2023-08-28)
PROC: 0BH17EZ Insertion of Endotracheal Airway into Trachea, Via Natural or Artificial Opening (ICD-10-PCS; 2023-08-28)
PROC: 5A09457 Assistance with Respiratory Ventilation, 24-96 Consecutive Hours, Continuous Positive Airway Pressure (ICD-10-PCS; 2023-08-31)
DX: T78.3XXA Angioneurotic edema, initial encounter (principal); J96.21 Acute and chronic respiratory failure with hypoxia; N17.9 Acute kidney failure, unspecified; J44.1 Chronic obstructive pulmonary disease with (acute) exacerbation; E87.20 Acidosis, unspecified; Z68.41 Body mass index [BMI] 40.0-44.9, adult; D72.829 Elevated white blood cell count, unspecified; I12.9 Hypertensive chronic kidney disease with stage 1 through stage 4 chronic kidney disease, or unspecified chronic kidney disease; E78.5 Hyperlipidemia, unspecified; K21.9 Gastro-esophageal reflux disease without esophagitis; E03.9 Hypothyroidism, unspecified; Z88.0 Allergy status to penicillin; Z79.899 Other long term (current) drug therapy; Z90.710 Acquired absence of both cervix and uterus; Z90.49 Acquired absence of other specified parts of digestive tract; Z98.890 Other specified postprocedural states; F17.210 Nicotine dependence, cigarettes, uncomplicated; E87.5 Hyperkalemia; N18.30 Chronic kidney disease, stage 3 unspecified; E66.01 Morbid (severe) obesity due to excess calories; D63.1 Anemia in chronic kidney disease; T46.4X5A Adverse effect of angiotensin-converting-enzyme inhibitors, initial encounter; G47.33 Obstructive sleep apnea (adult) (pediatric); K59.00 Constipation, unspecified
CPT/HCPCS: 31500; 36415; 36416; 36600; 71045; 80048; 80053; 82805; 83735; 84443; 85025; 93005; 93010; 94002; 94003; 94640; 94660; 96361; 96374; 96375; 99292; C9113; J1200; J1650; J2060; J2704; J2920; J2930; J3010; J3490; J7030; J7050; J7070; J7512; J7611; J7620; S0028

== ENCOUNTER 2024-03-21 09:01 | Outpatient (CLI) | payer MEDICARE | END 2024-03-21 09:02 | disposition home or self-care (01) | LOC: BICMAMMO 09:01 | PROVIDERS: ATTEND Family Medicine | DX: Z13.820 Encounter for screening for osteoporosis (principal); Z78.0 Asymptomatic menopausal state; M81.0 Age-related osteoporosis without current pathological fracture; M85.88 Other specified disorders of bone density and structure, other site | CPT/HCPCS: 77080 ==

== ENCOUNTER 2024-06-06 09:15 | Outpatient (CLI) | payer MEDICARE | END 2024-06-06 09:16 | disposition home or self-care (01) | LOC: BICCT 09:15 | PROVIDERS: ATTEND Internal Medicine | DX: Z12.2 Encounter for screening for malignant neoplasm of respiratory organs (principal); F17.218 Nicotine dependence, cigarettes, with other nicotine-induced disorders | CPT/HCPCS: 71271 ==